=== PATIENT | female | born 1935 | race Caucasian/White ===

== ENCOUNTER 2018-03-09 11:54 | Emergency (ER) | payer MEDICARE, OTHER ==
[~2018-03-09] VITALS: Ht 165.1 cm; Wt 111.1 kg
[~2018-03-09 11:54] MED LIST: ALL DAY ALLERGY10 M2 PO; CALCIUM600 MG PO; FISH OIL 1,0001 EAC5 PO; FOLIC ACID0.8 MG PO; LEVOTHYROXINE125 MCG PO; LIPITOR10 MG PO; METOPROLOL SUCC25 MG PO; MULTI COMPLETE1 EACH PO; MYRBETRIQ25 MG PO; NASALCROM26 ML NAS; OMEPRAZOLE20 MG PO; POTASSIUM CHLO10 ME1 PO; VITAMIN D32000 UNIT PO; WARFARIN SODIUM3 MG PO
[2018-03-09] MEDS ORDERED: ONDANSETRON ODT8 MG PO (14:22)
--- NOTE | 2018-03-09 15:31 | EKG ---
[facility] [address] [facility] [place], [place] [address] Signed Ventricular-paced rhythm Abnormal ECG No previous ECGs available Confirmed by JACKY DRIVER MD ([id number]) on 03/09/2018 3:31:20 PM Electronically Signed By: JACKY DRIVER MD 03/09/18 1531 PATIENT NAME: DORON GARCIA Electrocardiogram DATE OF : 37 PHYSICIAN: JACKY DRIVER MD REPORT #: [id number] REPORT IS CONFIDENTIAL AND NOT TO BE RELEASED WITHOUT AUTHORIZATION
== END 2018-03-09 14:53 | disposition home or self-care (01) ==
LOC: ED 11:54
DX: R51 Headache (principal); R09.02 Hypoxemia; R11.10 Vomiting, unspecified; J44.9 Chronic obstructive pulmonary disease, unspecified; K21.9 Gastro-esophageal reflux disease without esophagitis; E03.9 Hypothyroidism, unspecified; Z88.0 Allergy status to penicillin; Z79.01 Long term (current) use of anticoagulants; Z79.899 Other long term (current) drug therapy
CPT/HCPCS: 70450; 71045; 80053; 84484; 85025; 85610; 93005; 93010; 96374; 99284; J2405

== ENCOUNTER 2019-03-11 07:32 | Inpatient (IN) | payer MEDICARE, OTHER, MEDICAID ==
[~2019-03-11] VITALS: Ht 165.1 cm; Wt 117.2 kg
[~2019-03-11 07:32] MED LIST changes: +ATORVASTATIN CA20 MG PO; +MAGNESIUM CITR296 ML PO; +MYRBETRIQ50 MG PO; +ONDANSETRON ODT8 MG PO; +VITAMIN E400 UNI4 PO
--- NOTE | 2019-03-11 11:50 | NUR ---
PT ARRIVED TO FLOOR VIA STRETCHER. ABLE TO SLIDE TRANSFER SELF WITH MINIMAL HELP. 2L NC IN PLACE, LR BOLUS INFUSING. PT WITH INCREASED RESPIRATIONS AND LABORED BREATHING. LUNGS SOUND TIGHT AND DIM. 2+ EDEMA BILAT LE. DENEIS N/T. PT INCONT OR WATERY/BLOODY STOOL. ATTEMDS CHANGED. ORIENTED TO ROOM. LR AT 125 ML/HR AND BOLUS STARTED AT 500ML/HR. CALL LIGHT I NREACH AND RT IN TO ADMINISTER BREATHING TREATMENT.
--- NOTE | 2019-03-11 14:52 | NUR ---
PATIENT UP TO BATHROOM AND BACK TO BED WITH RN. CALL LIGHT IN REACH. NO FURTHER NEEDS AT THIS TIME.
--- NOTE | 2019-03-11 21:46 | NUR ---
Pt cooperative with assessment, awakes easily, no c/o pain. O2 2L NC inplace, pt takes off, instructed to place it back on, Coopertive, CPAP from home at bedside, denies sob. 2+ pitting edema lower legs, up with 1pa, voided, back to bed, slight sob nothed on return, No c./o adverse reaction to abx. IVF infusing w/o problems.
--- NOTE | 2019-03-11 22:02 | NUR ---
NEGATIVE TURNER ROUNDING NOTE. PT RESTING IN BED WITH EYES CLOSED. DOES NOT WAKE WHILE WRTIER IN ROOM. WHITE BOARD UPDATED. CALL LIGHT IN REACH.
--- NOTE | 2019-03-11 22:20 | NUR ---
ANSWERED BATHROOM CALL LIGHT. PATIENT NEEDED HELP WIPED/CLEANED HER. PATIENT IS BACK TO BED USING WALKER. V/S TAKEN AND CHARTED. ICE CUBES REFILLED. PATIENT STATED WILL USE THE CALL LIGHT WHEN READY TO USE HER CPAP.
--- NOTE | 2019-03-12 | NUR ---
Resting, O2 4L NC inplace, no resp distress, awakes easily. IVF infusing, call light at bedside, legs elevated
--- NOTE | 2019-03-12 02:56 | NUR ---
ANSWERED CALL LIGHT. 1 PA TO THE BATHROOM. PATIENT IS BACK IN BED. CPAP BACK ON. ICE CHIPS REFILLED.
--- NOTE | 2019-03-12 05:38 | NUR ---
PT ON 4L NC, CURRENTLY WERING CPAP. IVF INFUSING W/O PROBLEMS. UP WITH 1PA/FWW, SLOW GAIT, EDEMATOUS 2+ PITTING EDEMA LEGS. VOIDING QS. HAD SMEAR OF REDDISH COLORED BM. NO C/O PAIN OR RESP DISTRESS. RESTING IN BED. NPO. NATIVE. CALL LIGHT AT BEDSIDE
--- NOTE | 2019-03-12 06:55 | NUR ---
up to br, voided, no bm, back to bed, tolerated well. O2 4L NC back on. 1PA/FWW assist, still NPO, did own mouth care, ice chips given on requests
--- NOTE | 2019-03-12 07:43 | NUR ---
REPORT RECEIVED FROM HAIRSPRING TRUER RN. PT IN BED AWAKE. 4L NC IN PLACE. DENIES NEEDS OR PAIN. CALL LIGHT IN REACH.
--- NOTE | 2019-03-12 09:10 | NUR ---
PT REPORTING 8/10 LOWER BACK PAIN R/T CHRONIC ARTHRITIS. PRN TYLENOL GIVEN.
--- NOTE | 2019-03-12 09:38 | NUR ---
HUMIDIFIER APPLIED TO OXYGEN POST, PT ON 4L N.C. AT THIS TIME.
--- NOTE | 2019-03-12 10:34 | NUR ---
PATIENT IN CHAIR WATCHING TV. ICE CHIPS GIVEN. CALL LIGHT IN REACH. NO FURTHER NEEDS AT THIS TIME.
--- NOTE | 2019-03-12 12:00 | NUR ---
PT ADVANCED TO CLEAR LIQUIDS, BROTH AND JELLO PROVIDED. DENIES ABDOMINAL PAIN/NAUSEA/VOMITTING. BOWEL TONES ARE HYPERACTIVE. CALL LIGHT IN REACH.
--- NOTE | 2019-03-12 15:04 | NUR ---
PT OOB TO AMBULATE IN HALLS. TOLERATED WELL. 1PA TO SHOWER. VANDANA KTO BED. 4L NC IN PLACE. CALL LIGHT IN REACH.
--- NOTE | 2019-03-12 15:05 | NUR ---
PATIENT AMBULATED TO SHOWER. PATIENT ASSISTED IN SHOWERING. NEW GOWN AND DEPENDS PROVIDED. DANIELLE CARE, SKIN CARE, SHAMPOO DONE. PATIENT NOW BACK TO BED. CALL LIGHT IN REACH. NO FURTHER NEEDS AT THIS TIME.
--- NOTE | 2019-03-12 16:45 | NUR ---
SBA WITH FWW TO AMBULATE HALLS. PT ABLE TO AMBULATE 1 SHORT LAP WITH NO RESTS OR BREAKS. 4L NC IN PLACE DURING WALK. PT WITH LABORED BREATHING. HEARTRATE INCREASED TO 104. SATURATIONS AT 91%. BACK TO BED WITH CALL LIGHT AND EPRSONAL ITEMS IN REACH.
--- NOTE | 2019-03-12 18:24 | NUR ---
PY ADVANCED TO FULL LIQUID DIET FOR DINNER. TOLERATING WELL. SBA TO BATHROOM WITH FWW. SOME INCONTINENCE OF STOOL IN ATTENDS, WAS LIGHT BROWN WITH SOME MUCOUS. NO VISIBLE BLOOD PRESENT. PT WITH "STUFFY NOSE" AND UNABLE TO BREATH AIR IN. O2 PLACE IN MOUTH, TITRATED TO 3L. SATURATIONS AT 90%. CALL LIGHT IN REACH.
--- NOTE | 2019-03-12 18:34 | NUR ---
PATIENT IN BED WATCHING TV. CALL LIGHT IN REACH. NO FURTHER NEEDS AT THIS TIME.
--- NOTE | 2019-03-12 18:57 | NUR ---
PT HAD GOOD DAY, 4L NC. AMBULATED IN HALLS WITH NURSE X1. TYLENOL GIVEN FOR LOWER BACK PAIN. NO BLOOD VISIBLE IN BOWEL MOVEMENTS. SHOWER TODAY.
--- NOTE | 2019-03-12 19:52 | NUR ---
FOCUSED FACTORY MANAGER ROUNDING NOTE. PT RECEIVING NEB TREATMENT. IV PUMP ALARMING, RESOLVED. PT DENIES QUESTIONS OR CONCERNS AT THIS TIME. CALL LIGHT IN REACH. WHITE BOARD UPDATED.
--- NOTE | 2019-03-12 20:40 | NUR ---
coop with assessment
--- NOTE | 2019-03-12 22:08 | NUR ---
RESTING, O2 4L IN MOUTH TX PTS CHOICE BARBIE TO 'DRY NOSE'. NO C/O PAIN.CALL LIGHT AT BEDSIDE, IVF INFUSING, LEGS ELEVATED
--- NOTE | 2019-03-12 23:44 | NUR ---
RESTING, O2 4L NC IN PLACE. IVF INFUSING, CALL LIHGT AT BEDSIDE
--- NOTE | 2019-03-13 01:51 | NUR ---
RESTING, PT WEARING CPAP W O2. NO DISTRESS. IVF INFUSING W/O PROBLEMS, NO C/O PAIN. TOLERATING CLEAR FLUIDS WELL, NO N/V. CALL LIGHT AND BEDSIDE AT HANDS REACH
--- NOTE | 2019-03-13 04:41 | NUR ---
RESTING, NO DISTRESS WEARING CPAP W O2. IVF INFUSING., CALL LIGHT AT BEDSIDE
--- NOTE | 2019-03-13 05:47 | NUR ---
PT HAS SLEPT THIS SHIFT, CURRENTLY RESTING, EYES CLOSED, WEARING CPAP WITH O2. AWAKES EASILY, NO C/O PAIN, NO RECTAL BLEEDING THIS SHIFT. UP TO BR WITH 1PA AND FWW, SOB AT BEGINING OF SHIFT BUT PT DENIES IT. LEG EDEMATOUS W/O CHANGES. COOPERATIVE WITH ALL PROCEDURES. IVF INFUSING, TOLERATED CLEAR LIQUIDS WILL START FULL LIQUIDS DIET THIS AM AND ADVANCE TOLERATED. NO EMESIS. CALL LIHGT AND FLUIDS AT BEDSIDE
--- NOTE | 2019-03-13 06:26 | NUR ---
up to br, voided and had mucoid like rectal discharge. back to bed. 1pa/fww, ivf infusing. O2 4L NC in place.
--- NOTE | 2019-03-13 08:00 | NUR ---
PT APPEARS TO BE SLEEPING IN BED. EYES CLOSED, RESP EVEN AND UNLABORED. NC IN MOUTH PT IS BREATHING THROUGH MOUTH, 4L NC.
--- NOTE | 2019-03-13 09:56 | NUR ---
PATIENT IS RESTING IN BED. BREAKFAST WAS EATEN. WARM WASHCLOTH OFFERED. PATIENT REFUSED SHOWER SAYS SHE GOT ONE YESTERDAY. CALL LIGHT IN REACH NO FURTHER NEEDS AT THIS TIME.
--- NOTE | 2019-03-13 10:22 | NUR ---
PT IN RESTROOM UPON ENTERING ROOM. 1PA WITH WALKER TO CHAIR FROM BATHROOM. NOTED PT HAD VERY SMALL INCONTINENT STOOL, VERY MUCOUSY WITH RED STREAKS, NOTIFIED DR. MACHADO. PT DENIES PAIN OR OTHER CONCERNS AT THIS TIME. NOTED DYSPNEA WITH EXERTION BUT PT STATES "THAT'S HOW IT ALWAYS IS." SATTING 94% ON 4L NC. WEANED TO 3LNC AT THIS TIME SATTING 93%. ALERT AND ORIENTED. SITTING UP IN RECLINER. CALL LIGHT WITHIN REACH.
[2019-03-13] MEDS ORDERED: CEPHALEXIN500 MG PO (11:32)
[2019-03-13] MEDS ORDERED: METRONIDAZOLE500 MG PO (11:33)
[2019-03-13] MEDS ORDERED: IPRATROPIUM BRO30 ML NAS (11:37)
[2019-03-13] MEDS ORDERED: IPRAT-ALBUT 0.5-3 ML INH (11:38)
[2019-03-13] MEDS ORDERED: FLONASE ALLERG9.9 ML NAS (11:38)
[2019-03-13] MEDS ORDERED: SEREVENT DISKU1 PUFF INH (11:39)
--- NOTE | 2019-03-13 12:15 | NUR ---
PT SITTING UP AT EDGE OF BED AFTER AMB TO RESTROOM. EATING LUNCH INDEPENDENTLY, JASEN WELL. WILL HAVE HOME O2 QUALIIFICATION AFTER LUNCH, LUIS A Sung AWARE. CALL LIGHT WITHIN REACH.
[2019-03-13] MEDS ORDERED: COMBIVENT RESPIM4 GM INH (13:30)
--- NOTE | 2019-03-13 13:38 | NUR ---
MED REC COMPLETE
--- NOTE | 2019-03-13 13:52 | NUR ---
FAXED THE RECORDS TO [facility] LY IN REGARDS TO INCREASING HER OXYGEN. COPY IN THE CHART.
== END 2019-03-13 14:05 | disposition home or self-care (01) | DRG 392 ==
LOC: ED 07:32 → MS 11:17
PROVIDERS: ADMIT Internal Medicine
DX: K57.32 Diverticulitis of large intestine without perforation or abscess without bleeding (principal); J96.11 Chronic respiratory failure with hypoxia; Z68.41 Body mass index [BMI] 40.0-44.9, adult; J41.1 Mucopurulent chronic bronchitis; I48.0 Paroxysmal atrial fibrillation; E03.9 Hypothyroidism, unspecified; E78.5 Hyperlipidemia, unspecified; G47.33 Obstructive sleep apnea (adult) (pediatric); K21.9 Gastro-esophageal reflux disease without esophagitis; E66.8 Other obesity; Z87.891 Personal history of nicotine dependence; Z95.0 Presence of cardiac pacemaker; Z99.81 Dependence on supplemental oxygen; Z88.0 Allergy status to penicillin; Z79.01 Long term (current) use of anticoagulants; Z79.51 Long term (current) use of inhaled steroids; Z79.899 Other long term (current) drug therapy
CPT/HCPCS: 36415; 74177; 80053; 81001; 83690; 83735; 85025; 85610; 85730; 87088; 94640; 94761; 96368; 99285-25; C9113; J0692; J0696; J3475; J7060; J7120

== ENCOUNTER 2021-01-08 08:47 | Inpatient (IN) | payer MEDICARE, OTHER, MEDICAID ==
[~2021-01-08] VITALS: Ht 165.1 cm; Wt 110.0 kg
[~2021-01-08 08:47] MED LIST changes: +CEPHALEXIN500 MG PO; +COMBIVENT RESPIM4 GM INH; +FLONASE ALLERG9.9 ML NAS; +FUROSEMIDE20 MG PO; +IPRAT-ALBUT 0.5-3 ML INH; +IPRATROPIUM BRO30 ML NAS; +LEVOTHYROXINE137 MCG PO; +METRONIDAZOLE500 MG PO; +RANITIDINE HCL150 M1 PO; +SEREVENT DISKU1 PUFF INH
--- NOTE | 2021-01-08 13:00 | NUR ---
85 YEAR OLD FEMALE PATIENT ADMITTED TO CCU VIA STRETCHER UNDER DR. DRIVER WITH DX OF COVID POSITIVE,HYPOXIA. UPON ADMIT PATIENT IS AWAKE, ALERT AND ORIENTED X3. HAD RAINER AND RAINER VACCINE IN THE PAST, PATIENT IS NOT SURE WHEN SHE HAD IT. PATIENT WITH HX OF COPD, PACEMAKER. ADMISSION PROCESS STARTED.
--- NOTE | 2021-01-08 14:00 | NUR ---
TO COMMODE TO VOID SMALL AMOUNT OF URINE, URINE IS CONCENTRATED, IS WEAK AND MOVES VERY SLOW. REMDESIVIR HUNG PER ORDERS.
--- NOTE | 2021-01-08 14:42 | NUR ---
SITTING UP IN BED EATING. IS VERY WEAK.
--- NOTE | 2021-01-08 17:00 | NUR ---
REFUSING DINNER. COUMADIN 2 MG PO GIVEN. ASSESSMENT DONE. DENIES FEELING SHORT OF BREATH. UP TO COMMODE TO VOID. MOVES VERY SLOW AND IS SOMEWHAT UNSTEADY ON FEET.
--- NOTE | 2021-01-08 17:01 | EKG ---
[facility] [address] [facility] [place] [address] Signed Ventricular-paced rhythm Abnormal ECG When compared with ECG of 09-MAR-2018 12:17, Vent. rate has decreased BY 4 BPM Confirmed by JACKY DRIVER MD ([id number]) on 01/08/2021 5:01:08 PM Electronically Signed By: JACKY DRIVER MD 01/08/21 1701 PATIENT NAME: DORON GARCIA Electrocardiogram DATE OF : 37 PHYSICIAN: JACKY DRIVER MD REPORT #: [id number] REPORT IS CONFIDENTIAL AND NOT TO BE RELEASED WITHOUT AUTHORIZATION
--- NOTE | 2021-01-08 18:00 | NUR ---
SLEEPING. O2 SAT VARIES FROM 88-92 ON 4 L NC.
--- NOTE | 2021-01-08 19:18 | NUR ---
PATIENT IS SLEEPING, REPORT TO NEXT SHIFT.
--- NOTE | 2021-01-08 19:30 | NUR ---
RECEIVED REPORT FROM RENU. RT IN ROOM SETTING UP CPAP AT THIS TIME.
--- NOTE | 2021-01-08 20:30 | NUR ---
IN TO DO ASSESSMENT. pt RESTING IN BED. REPORTED BACK PAIN. ASSISTED TO SIT UP ON SIDE OF BED. pt TACHYPNEIC, SHALLOW RESPIRATIONS. CRACKLES AUSCULATED IN BASES. pt REPORTED OCCASSIONAL COUGH. ASSISTED pt TO CHAIR. pt REPORTED IT WAS "MORE COMFORTABLE" CALL LIGHT WITHIN REACH.
--- NOTE | 2021-01-08 21:00 | NUR ---
PROVIDED FRESH COFFEE. CALL LIGHT WITHIN REACH.
--- NOTE | 2021-01-08 22:00 | NUR ---
ROUNDED ON pt. SITTING IN CHAIR WITH EYES CLOSED, RESPIRATIONS REGULAR IN THE LOW 30'S. CALL LIGHT WITHIN REACH.
--- NOTE | 2021-01-09 00:05 | NUR ---
CALL LIGHT ON. pt READY TO GO TO BED. UP TO VOID BSC, THEN TO BED. REQUIRED SOMETHING TO HOLD ON TO, BUT ABLE TO GET UP ON OWN. NO CHANGES IN ASSESSMENT. PROVIDED FRESH COFFEE. CALL LIGHT WITHIN REACH. pt SITTING IN BED WITH COFFEE.
--- NOTE | 2021-01-09 00:20 | NUR ---
CALL LIGHT ON. ASSISTED pt WITH CPAP. NO FURTHER REQUESTS AT THIS TIME. CALL LIGHT WITHIN REACH.
--- NOTE | 2021-01-09 01:13 | NUR ---
CALL LIGHT ON. pt UP TO BSC TO HAVE A BM. BACK TO BED. COMPLAINED OF HEARTBURN. NIO ORDERED AND GIVEN (SEE MAR). CPAP IN PLACE. NO FURTHER REQUESTS AT THIS TIME. CALL LIGHT WITHIN REACH.
--- NOTE | 2021-01-09 03:07 | NUR ---
ROUNDED ON pt. RESTING IN BED WITH CPAP ON. CALL LIGHT WITHIN REACH.
--- NOTE | 2021-01-09 06:16 | NUR ---
ROUNDED ON pt. SITTING IN BED TRIPODING ON BEDSIDE TABLE. LABS DRAWN. CALL LIGHT WITHIN REACH.
--- NOTE | 2021-01-09 07:11 | NUR ---
CALL LIGHT ON. pt HAD INCONT. STOOL. BSC. URINE. pt 1PA TO CHAIR. LEGS ELEVATED. NO FURTHER REQUESTS AT THIS TIME. CALL LIGHT WITHIN REACH.
--- NOTE | 2021-01-09 08:30 | NUR ---
PT IS SITTING UP IN CHAIR. WAS ABLE TO EAT ALL OF HER BREAKFAST. DENIES NAUSEA BUT HAS SOME PAIN. PRN PAINMED GIVEN. NO DESIRE TO VOID AT THIS TIME. PT PERFORMED ORAL CARE INDEPENDENTLY AFTER SUPPLIES WERE GIVEN. WASH CLOTH WAS GIVEN AND SHE WAS ABLE TO WIPE HER FACE INDEPENDENTLY. CALL LIGHT WITHIN REACH
--- NOTE | 2021-01-09 09:30 | NUR ---
PT WAS ABLE TO AMBULATE TO BEDSIDE COMMODE USING WALKER AND SBA. PT IS NOW LAYING DOWN IN BED. NC REPLACED WITH OXYMASK 3L, 02 94%. PT COMPLAINED OF HEART BURN, PRN MED GIVEN. CALL LIGHT WITHIN REACH.
--- NOTE | 2021-01-09 09:50 | NUR ---
PT'S SON (MR.LUCKY GARCIA) CALLED AND WAS GIVEN A FULL UPDATE ON HIS MOTHERS STATUS THIS MORNING. ALL QUESTIONS WERE ANSWERED. 'S PHONE NUMBER IS [phone].
--- NOTE | 2021-01-09 10:00 | NUR ---
Information obtained from RN as pt is covid + and does not have a kennedi phone. Pt is sleeping. Pt lives in [place] in a house with her son, David. Pt uses a walker and a CPAP. Will discharge to home with son when cleared medically.
--- NOTE | 2021-01-09 12:08 | NUR ---
PT ABLE TO USE BEDSIDE COMMODE WITH SBA. REDDENED AREA UNDER BILATERAL BREASTS, UNDER PANIS, AND IN GROIN FOLDS. CLEANED AREA AND DESENEX ANTIFUNGAL POWDER APPLIED. LUNCH ORDERED. CALL LIGHT WITHIN REACH.
--- NOTE | 2021-01-09 13:31 | NUR ---
PT IS UNDER PRECUTIONS AND I AM UNABLE TO VISIT. WILL FOLLOW NEEDED
--- NOTE | 2021-01-09 15:08 | NUR ---
PT IS SITTING UP AT THE BEDSIDE, EATING LUNCH. PT DENIES ANY PAIN OR NAUSEA. PT IS ABLE TO EAT INDEPENDENTLY BUT DOES HAVE INCREASED FATIGUE AND SOB. CALL LIGHT WITH IN REACH. PT WAS ASKED TO USE HER CALL LIGHT WHEN MEAL IS COMPLETED TO ASSIST WITH LAYING BACK DOWN.
[2021-01-09] MEDS ORDERED: HAIR, SKIN & N1 EACH PO (16:45)
[2021-01-09] MEDS ORDERED: CALCIUM500 MG PO (16:45)
--- NOTE | 2021-01-09 16:46 | NUR ---
MED REC COMPLETE
--- NOTE | 2021-01-09 17:00 | NUR ---
HELPED PT SIT UP AT BEDSIDE TO EAT HER DINNER. TOLERATED THAT WELL. NEW WATER CUP PLACED AT TABLE. SHEET USED TO COVER HER BACK WHILE SHE ATE. PREPARED THE CHAIR FOR HER TO SIT IN AFTER SHE FINISHES DINNER. CALL LIGHT WITHIN REACH. VERBALLY DISCUSSED TO USE HER CALL LIGHT WHEN PT IS READY TO MOVE TO THE CHAIR
--- NOTE | 2021-01-09 18:14 | NUR ---
ASSIST PT TO THE CHAIR. REPOSITIONED CHAIR SO THAT IT WAS CLOSE TO THE OUTLET. GAVE PT HER PHONE. STAND BY ASSIST WITH WALKER TO HER CHAIR. FIXED CORDS SINCE PT WAS ALL TANGLED UP IN THE CORDS. REMINDED PT TO TAKE DEEP BREATHS IN THROUGH HER NOSE AND OUT HER MOUTH SINCE OXYGEN WAS 88%. AFTER DEEP BREATHS PT OS WHEN UP TO LOW 90'S. NO OTHER CONCERNS AT THIS TIME. CALL LIGHT WITHIN REACH. LEGS ELEVATED. HEATED BLANKET PLACED ON PATIENTS ARMS AND HANDS. WILL CONTINUE TO MONITOR CLOSELY FOR CHANGES.
--- NOTE | 2021-01-09 19:30 | NUR ---
SHIFT REPORT RECEIVED. PATIENT AWAKE. PLACED ON CPAP BY CONDENSER CLEANER. CALL LIGHT IN REACH. VS STABLE.
--- NOTE | 2021-01-09 19:34 | NUR ---
PT REQUESTED EYEROPS, PLACED NS DROPS IN CORNER OF EYES. PT STATES THEY FELT BETTER. ONE PERSON ASSIST TO THE BEDSIDE COMMODE. SHE WAS ABLE TO LAY DOWN WITH OONE PERSON ASSIST. CPAP PLACED. WATER AND PHONE PLACED AT BEDSIDE TABLE. CALL LIGHT WITHIN REACH.
--- NOTE | 2021-01-09 21:00 | NUR ---
STAFF INTO ROOM FOR SCHEDULED MEDS. PATIENT IS FRUSTERATED THAT STAFF HAS NOT BEEN IN MORE REGULARLY. ASK PATIENT IF SHE HAD BEEN NEEDING HELP OR REMEMBERED HOW TO USE THE CALL LIGHT. PATIENT STATES "OF COURSE I DO". PATIENT OFF CPAP FOR NEB TREATMENT. LUNG SOUNDS ARE CLEAR. PATIENT BECOMES VISIBLY SOB WHEN OFF CPAP FOR SEVERAL MINS, THOUGH O2 SATS ARE IN MID 90'S WITH 6L OXYMASK. THEN 88-89% ON ROOM AIR WHILE PATIENT TAKES MEDS AND DRINKS SOME WATER. ASSISTED PATIENT TO REPOSITION. SHE REPORTS TINGLING IN HER LEGS AND ACHE IN HER BACK. PATIENT TURNED TO RIGHT SIDE PER REQUEST AND REPORTS BEING COMFORTABLE. POWDER APPLIED UNDER BREAST ON IN GROIN. SKIN IS INTACT. PATIENT DENIES TOILETING NEEDS. AGREES TO USE CALL LIGHT FOR ANY NEEDS. LIGHTS DIMMED. CPAP BACK IN PLACE.
--- NOTE | 2021-01-10 00:15 | NUR ---
PATIENT CALLED FOR ASSISTANCE. A&D OINTMENT REQUESTED FOR DRY SKIN. PATIENT TAKING A BREAK FROM THE CPAP AND ON 4L OXYMASK. PATIENT REPORTS PAIN 7/10 IN HER BACK. PRN TYLENOL PROVIDED. PATIENT UP TO VOID. TRANSFERS WELL. ASSISTED BACK TO BE AND POSITIONED FOR COMFORT ON RIGHT SIDE. CALL LIGHT IN REACH. PATIENT DENIED FURTHER NEEDS.
--- NOTE | 2021-01-10 01:50 | NUR ---
PATIENT APPEARS TO BE SLEEPING WELL. RR 16. O2 SAT IN MID 90'S ON 4L OXYMASK.
--- NOTE | 2021-01-10 06:00 | NUR ---
PATIENT RESTING IN BED. OXYMASK IN PLACE. O2 SATS GREATER THAN 90% ON 4L. PATIENT REPORTS FEELING BETTER THIS MORNING THAN SHE HAS PREVIOUSLY. PATIENT REPORTS BACK PAIN 6/10 IN LOWER BACK. ASSISTED PATIENT UP TO BSC. PATIENT VOIDED AND HAD SMALL BM. PATIENT INTO RECLINER. FRESH ICE WATER PROVIDED. TOLERATING 4L OXYMASK EVEN WITH ACTIVITY. BREAKFAST ORDER RECEIVED.
--- NOTE | 2021-01-10 09:13 | NUR ---
THIS RN IN TO ASSESS PT. PT ALERT AND ORIENTED X4, SITTING IN BEDSIDE RECLINER READING A BOOK. OXYMASK IN PLACE AT 4L. PT REPORTS NO PAIN WHEN ASKED. MEDICATIONS ADMINISTERED (SEE MAR). PT ASSESSED AT THIS TIME, CRACKLES PRESENT IN BASES OF LUNGS BILATERALLY, PT DENIES SOB. PT PLACED ON 4L O2 NC TO EAT BREAKFAST PT BEGAN TO DESAT WITHOUT OXYGEN DOWN TO 88-89%. PT NOW EATING BREAKFAST, SPO2 AT 91%, IV REMDESIVIR INFUSING ORDERED. PT REPORTS NO FURTHER NEEDS AT THIS TIME, WILL CONTINUE PLAN OF CARE. CALL LIGHT IN REACH.
--- NOTE | 2021-01-10 11:10 | NUR ---
THIS RN IN TO ASSESS PT AND DRAW LABS. PT ALERT AND ORIENTED SITTING AT BEDSIDE RECLINER ON 4L NC. PT ASSESSED, VITALS TAKEN. IV STARTED ON PT IN THE RIGHT FOREARM AND LABS DRAWN. IV SALINE LOCKED. PT THEN GIVEN A BED BATH AND A NEW GOWN AT THIS TIME. SCHEDULED MEDICATIONS ADMINISTERED AFTERWARDS AND ICE WATER GIVEN TO PT. PT ALSO UP TO VOID IN THE BSC USING A FWW. PT ASSISTED IN GETTING UP BUT WAS ABLE TO SHUFFLE WALK TO COMMODE AND SIT DOWN ON HER OWN. PT NOW BACK IN BEDSIDE RECLINER AND REPORTS NO FURTHER NEEDS. CALL LIGHT IN REACH, 4L O2 NC ON, WILL CONTINUE PLAN OF CARE.
--- NOTE | 2021-01-10 11:37 | NUR ---
DR. MACHADO UPDATED THIS RN ON NEW P.T ORDERS AND PT'S MEDICAL SURGICAL STATUS. WILL CONTINUE PLAN OF CARE.
--- NOTE | 2021-01-10 12:18 | NUR ---
PT ON PRECAUTIONS, RT IN WITH PT ALSO AT THE MOMENT. WILL FOLLOW
--- NOTE | 2021-01-10 12:30 | NUR ---
RESPONDED TO PT CALL LIGHT. PT SITTING IN BEDSIDE RECLINER AND WANTED TO MOVE OVER TO THE BED. PT ABLE TO USE FWW TO GET UP AND VOID INTO THE BSC AND WAS THEN ABLE TO SHUFFLE WALK OVER TO THE BED. PT NOW LAYING ON HER SIDE IN BED AND READING A MENU TO ORDER HER DINNER. PT REPORTS NO FURTHER NEEDS AT THIS TIME, WILL CONTINUE PLAN OF CARE. CALL LIGHT IN REACH, BED IN LOWEST POSITION.
--- NOTE | 2021-01-10 13:20 | NUR ---
THIS RN IN TO GIVE PT. HER FOOD. PT LAYING ON SIDE AWAKE AND ALERT. PT SAT UP ON SIDE OF THE BED TO EAT HER LUNCH. PT REPORTS NO FURTHER NEEDS AT THIS TIME, WILL CONTINUE PLAN OF CARE. CALL LIGHT IN REACH, BED IN LOWEST POSITION, PT ON 4L O2 NC.
--- NOTE | 2021-01-10 14:30 | NUR ---
RESPONDED TO PT CALL LIGHT. PT STATED SHE NEEDED TO VOID. THIS RN INTO ROOM TO ASSIST PT IN STANDING UP. PT ABLE TO USE THE FWW TO SHUFFLE WALK OVER TO THE BSC. PT ABLE TO VOID AND HAD A SMALL SMEAR/BM. PT NOW BACK IN BED LAYING ON SIDE. PT STATES SHE FELT SOB WHEN GETTING UP BUT FEELS BETTER AFTER RESTING. PT ORDERED BREAKFAST FOR THE NEXT MORNING AT THIS TIME. PT REPORTS NO FURTHER NEEDS WHEN ASKED AND STATES SHELL TRY TO GET SOME REST. CALL LIGHT IN REACH, BED IN LOWEST POSITION, WILL CONTINUE PLAN OF CARE.
--- NOTE | 2021-01-10 16:40 | NUR ---
THIS RN IN TO ADMINISTER ORDERED MEDICATIONS AND ASSESS PT. PT LAYING IN BEDSIDE RECLINER AWAKE AND ALERT ON 4L O2 NC. PT MEDICATION ADMINISTERED WARFARAIN HELD AT THIS TIME ORDERED ON THE NOV. PT THEN ASSESSED. PT STATED SHE NEEDED TO VOID AFTER ASSESSMENT AND WAS ABLE TO GET UP FROM RECLINER WITHOUT ASSISTANCE AND WALKED OVER TO THE BATHROOM USING THE FWW TO VOID. PT THEN ABLE TO WALK BACK TO BED WITH FWW. PT ASSISTED WITH PUTTING LEGS UP WHEN LAYING IN BED. PT IV'S FLUSHED AT THIS TIME AND ARE BOTH PATENT. PT REPORTS NO FURTHER NEEDS AT THIS TIME, PILLOWS PLACED UNDER BACK AND BETWEEN KNEES. PT LAYING ON HER R SIDE NOW. PT DENIES ANY NEEDS OR PAIN AT THIS TIME. CALL LIGHT IN REACH, BED IN LOWEST POSITION, WILL CONTINUE PLAN OF CARE.
--- NOTE | 2021-01-10 17:57 | NUR ---
PT RESTING IN BED ON RIGHT SIDE. RESPIRATIONS NOTED, SPO2 AT 94%. PT. IN NO APPARENT DISTRESS AND WAS LEFT UNDISTURBED AT THIS TIME. WILL CONTINUE PLAN OF CARE. CALL LIGHT IN REACH, BED IN LOWEST POSITION.
--- NOTE | 2021-01-10 18:53 | NUR ---
THIS RN IN TO CHECK ON PT. PT SITTING UP AT SIDE OF THE BED. PT STATED HER IV WAS BOTHERING HER. IV ON R FOREARM FLUSHED. IV RETURNED BLOOD AND FLUSHED EASILY. SITE IS WNL, PT STATED THE IRRITATION HAD SUBSIDED AFTER FLUSHING THE SITE. PT THEN WANTED TO GET OVER TO THE BEDSIDE RECLINER. PT ABLE TO GET UP ON HER OWN AND USE THE FWW TO GET OVER TO THE RECLINER. PRN TYLENOL THEN ADMINISTERED AT THIS TIME PT STATED HER BACK BEGAN TO ACHE 7/10. PT STATED THE PAIN WAS CHRONIC AND DUE TO HER ARTHRITIS WHEN ASKED. PT THEN STATED SHE NEEDED TO VOID. PT UP TO THE BATHROOM USING THE FWW TO VOID. PT NOW SITTING IN BEDSIDE RECLINER ON 4L O2 NC, SPO2 AT 92%. PT REPORTS NO FURTHER NEEDS AT THIS TIME. WILL CONTINUE PLAN OF CARE. CALL LIGHT IN REACH.
--- NOTE | 2021-01-10 20:00 | NUR ---
PATIENT PROVIDED WITH NEB TREATMENT AND SCHEDULED MEDS. PATIENT REPORTS DISCOMFORT IN HER THROAT, COUGH SYRUP PROVIDED. PATIENT REPORTS LUMBER BACK PAIN AND A "TWISTED RIB" IN HER MID LEFT BACK/SIDE. LIDODERM PATCH PLACED ON THIS RIB AREA. PATIENT UP TO VOID. USES WALKER APPROPRIATELY. TOLERATING 4L NC. PATEINT INTO BED. ASSISTED TO POSITION FOR COMFORT. PATIENT DOES NOT WANT CPAP AT THIS TIME DUE TO UNCOMFORTABLE MASK. PATIENT WILL CALL IF SHE CHANGES HER MIND. CALL LIGHT IN REACH.
--- NOTE | 2021-01-10 21:00 | NUR ---
PATIENT CALLED FOR CPAP TO BE PLACE. RT IN ROOM.
--- NOTE | 2021-01-11 00:03 | NUR ---
patient up to the bathroom. tolerates ambulating with fww and 4l nc. Patient returned to bed. cpap in place. patient reporting being comfortable. some relief from the lidoderm patch. call light in reach.
--- NOTE | 2021-01-11 04:45 | NUR ---
PATIENT CALLED FOR ASSISTANCE TO THE BATHROOM. PATIENT WALKED WITH FWW TO THE BATHROOM. TOLERATING 4L NC. PATIENT VOIDED, RETURNED TO BED. SITTING AT EDGE OF BED. LABS DRAWN. VS STABLE. PATIENT DENIED ANY NEEDS.
--- NOTE | 2021-01-11 07:30 | NUR ---
REPORT RECIEVED. PATIENT IS SLEEPING, NO DISTRESS NOTED.
--- NOTE | 2021-01-11 07:50 | NUR ---
AMBULATED TO BR TO VOID 150 ML OF CLEAR YELLOW URINE. USING WALKER FOR AMBULATION.
--- NOTE | 2021-01-11 08:00 | NUR ---
WOKE FOR ASSESSMENT. TO BEDSIDE FOR BREAKFAST. ROUTINE MEDICATIONS GIVEN. DENIES PAIN OR SHORTNESS OF BREATH. TALKED WITH PATIENT ABOUT POC FOR DAY, PATIENT INDICATES UNDERSTANDING. REMAINS ON 4 L O2 VIA NC.
--- NOTE | 2021-01-11 09:00 | NUR ---
BACK TO BED AFTER BREAKFAST.
--- NOTE | 2021-01-11 11:14 | NUR ---
pt up and ambulated to the restroom with slight standby assist. pt stated the urge to void came on suddenly, and she did not have her walker close to her. pt states "i want to be able to walk to the bathroom like the doctor told me i should". discussed safety with plan with pt, that includes calling for help. pt is agreable.
--- NOTE | 2021-01-11 13:00 | NUR ---
HAS BEEN SITTING AT BEDSIDE. ATE SOUP FOR LUNCH. ENC PATIENT TO INDEPENTENT IN ROOM. ENC USE OF I.S. PATIENT HAS BEEN TALKING ABOUT DISCHARGE FOR TOMORROW. HAS OCC COUGH.
--- NOTE | 2021-01-11 18:29 | NUR ---
PT ABLE TO EAT 80% OF HER DINNER, THEN SHE AMBULATED TO THE BATHROOM AND BACK TO BED INDEPENDENTLY WITH HER WALKER. SHE REPORTS BACK PAIN AT 8/10, 650 MG PO TYLENOL GIVEN. PT GETS INTO BED ON HER OWN, PILLOWS FOR SUPPORT BEHIND HER BACK AND COVERED PT WITH A WARM BLANKET. PT HAS CALL LIGHT WITHIN REACH, O2 VIA NC IN PLACE.
--- NOTE | 2021-01-11 19:57 | NUR ---
patient sitting at edge of bed. reports her back is sore. denies any needs. tolerating 4l nc.
--- NOTE | 2021-01-11 20:15 | NUR ---
PATIENT PROVIDED WITH BREATHING TREATMENT AND PM MEDS. PATIENT IS SITTING AT EDGE OF BED. HAVING A SNACK. TOLERATIING 4L NC. VS STABLE.
--- NOTE | 2021-01-11 22:30 | NUR ---
PATIENT REQUEST CPAP BE PLACED. ASSISTED PATIENT TO POSITION MASK. PATIENT RESTING BED. DENIES FURTHER NEEDS. CALL LIGHT IN REACH.
--- NOTE | 2021-01-12 00:30 | NUR ---
PATIENT APPEARS TO BE SLEEPING SOUNDLY. RR 20. OR SAT 95% ON CPAP.
--- NOTE | 2021-01-12 02:30 | NUR ---
PATIENT CONTINUES TO REST OFF AND ON. TOLERATING CPAP. O2 SATS >90%.
--- NOTE | 2021-01-12 04:51 | NUR ---
PATIENT UP TO THE BATHROOM. SMALL BM. PATIENT BRUSHED HER TEETH AND ASSISTED WITH BRUSHING HER HAIR. PATIENT'S VS STABLE. TOLERATING 4L EVEN WITH ACTIVITY. LABS DRAW. PATIENT DENIED OTHER NEEDS.
--- NOTE | 2021-01-12 05:50 | NUR ---
PATIENT PROVIDED WITH WARM BLANKET. SITTING AT EDGE OF BED.
--- NOTE | 2021-01-12 08:20 | NUR ---
PT IS AWAKE AND ALERT X4 SITTING UP AT THE SIDE OF THE BED.
--- NOTE | 2021-01-12 09:13 | NUR ---
IV SITES ARE INTACT, NO REDNESS OR SWELLING NOTED, FLUIDS AND FLUSHES INFUSE EASILY.
[2021-01-12] MEDS ORDERED: BENZONATATE100 MG PO (09:50)
[2021-01-12] MEDS ORDERED: SUCRALFATE1 GM PO (09:59)
[2021-01-12] MEDS ORDERED: OMEPRAZOLE20 MG PO (10:00)
[2021-01-12] MEDS ORDERED: DEXAMETHASONE6 MG PO (10:01)
--- NOTE | 2021-01-12 11:30 | NUR ---
PT ALERT AND ORIENTED X4, ABLE TO GET INTO WHEELCHAIR INDEPENDENTLY. ALL PERSONAL BELONGINGS GATHERED. PT IS DRESSED IN HER OWN CLOTHES. BOTH SALINE LOCKED IV SITES REMOVED. DC INSTRUCTIONS GIVEN, ALL PT QUESTIONS ANSWERED. PT TAKEN OUT THE BACKSTAGE HALLWAY TO DC HOME. ASSISTED PT TO GET INTO PERSONAL CAR. ALL BELONGINGS SENT WITH PT. PT'S SON, MR. CONSUELO GARCIA, IS DRIVING THE VEHICLE.
--- NOTE | 2021-01-13 14:04 | NUR ---
CALLED PATIENTS SON CONSUELO TO CHECK ON PATIENT AND MAKE SURE THEY HAVE THE OXYGEN. HE SAYS PATIENT IS DOING MUCH BETTER TODAY. THEY HAVE HER MEDICINE, AND THE OXYGEN THROUGH [facility]. HE HAS NO QUESTIONS. THEY HAVE A FOLLOW APPT MADE WITH PCP. REMINDED HIM THEY CAN CALL OUR CM TEAM ANYTIME.
== END 2021-01-12 11:30 | disposition home or self-care (01) | DRG 177 ==
LOC: ED 08:47 → CCU 12:48
PROVIDERS: ADMIT Internal Medicine; ATTEND Internal Medicine
PROC: XW033E5 Introduction of Remdesivir Anti-infective into Peripheral Vein, Percutaneous Approach, New Technology Group 5 (ICD-10-PCS; principal; 2021-01-08)
DX: U07.1 COVID-19 (principal); J12.82 Pneumonia due to coronavirus disease 2019; J96.21 Acute and chronic respiratory failure with hypoxia; J12.81 Pneumonia due to SARS-associated coronavirus; J44.0 Chronic obstructive pulmonary disease with (acute) lower respiratory infection; K21.9 Gastro-esophageal reflux disease without esophagitis; E03.9 Hypothyroidism, unspecified; E78.5 Hyperlipidemia, unspecified; I48.0 Paroxysmal atrial fibrillation; Z79.01 Long term (current) use of anticoagulants; Z79.899 Other long term (current) drug therapy; Z88.0 Allergy status to penicillin; Z87.891 Personal history of nicotine dependence; Z99.81 Dependence on supplemental oxygen
CPT/HCPCS: 71045; 80053; 83605; 83735; 83880; 84484; 85025; 85379; 85610; 93005; 93010; 94640; 94660; 97110; 97116; 97162; 97530; 99285-25; A9270; C9803; J7050; J8540; U0003

== ENCOUNTER 2021-02-12 10:53 | Inpatient (IN) | payer MEDICARE, OTHER, MEDICAID ==
[~2021-02-12] VITALS: Ht 165.1 cm; Wt 113.4 kg
[~2021-02-12 10:53] MED LIST changes: +BENZONATATE100 MG PO; +CALCIUM500 MG PO; +DEXAMETHASONE6 MG PO; -FUROSEMIDE20 MG PO; +HAIR, SKIN & N1 EACH PO; +SUCRALFATE1 GM PO
--- NOTE | 2021-02-12 18:13 | NUR ---
CALL LIGHT IN REAch vs charted and i&o's
--- NOTE | 2021-02-12 19:30 | NUR ---
transferred pt and belonings to rm 114, no further needs at this time
--- NOTE | 2021-02-12 20:20 | NUR ---
IN TO ASSIST RN WITH VITALS, ICE WATER REFILLED, NO FURTHER NEEDS AT TIME
--- NOTE | 2021-02-12 21:00 | NUR ---
Pt on 2L O2 chronic at home, uses home CPAP at HS, lungs with crackles at bases, no sob stated or noted, coop with assessment. no c/o pain. helped with repositioning in bed. edema at ankles . Pleasant and coop, IVF infusing. on clear liquids, tolerating well, no emesis.
--- NOTE | 2021-02-12 22:40 | NUR ---
IN TO ASSIST PT TO THE TOILET, SBA/1PA FWW AND IV POLE, PT SITTING UP AT BEDSIDE, REQUESTING SOMETHING FOR BACK PAIN, RN INFORMED, IV PUMP ALARMING, ALSO INFORMED RN, ASSISTED PT WITH COVERS, PT DECLINED SCDS THIS TIME, NO FURTHER NEEDS
--- NOTE | 2021-02-12 22:53 | NUR ---
sITTING EDGE OF BED. EGG CRATE MATTRESS GIVEN PER C/O BACK PAIN. MEDICATED WITH 1 NORCO PER BACK PAIN. UP TO BR, VOIDED, BACK TO BED, TOLERATED WELL.. CPAP TO BE PLACED ON SOON PT IS READY TO LAY DOWN, CALL LIGHT AT HANDS REACH
--- NOTE | 2021-02-13 00:13 | NUR ---
RESATING, USING CPAP, NO C/O PAIN OR SOB.
--- NOTE | 2021-02-13 03:02 | NUR ---
USING CPAP, NO FURTHER C/O PAIN. CALL LIGHT AND FLUIDS AT BEDSIDE
--- NOTE | 2021-02-13 05:09 | NUR ---
IN TO ASSIST PT OUT TO THE TOILET, 1PA FWW, PT SITTING AT EDGE OF BED, JELLO, BROTH, ICE CREAM, AND ICE WATER PROVIDED AT THIS TIME, NO FURTHER NEEDS AT THIS TIME
--- NOTE | 2021-02-13 05:25 | NUR ---
Has slept well, 1PA/FWW to br, voiding QS, on clear liquids, tolerating well, no emesis. O2 2LNC chronic at daytime, Has used her home CPAP w 4Lbleeding O2. lungs w crackles at bases, moist non productive cough present. Has Pacemaker, denies CP or sob. IVF infusing w/o problems, no c/o adverse reaction to IV abx. Was medicated with Tylenol 650mg X1 and [place] X1 per back pain, foam mattress placed on bed, effective, no further c/o pain. pleasant and coop. MENTASTA.
--- NOTE | 2021-02-13 06:19 | CONS ---
[facility] [address], [place] [address] Signed DATE OF CONSULTATION: 02/12/2021 CHIEF COMPLAINT: Lower quadrant abdominal pain. HISTORY OF PRESENT ILLNESS: Kayli is an 85-year-old significantly disabled female mainly with COPD and CPAP requiring 4 L per nasal cannula at night. She had developed left lower quadrant abdominal pain in the last few days along with what she felt was constipation. She was trying enemas and suppositories without success. She finally came to the emergency room for evaluation. She was tender in the left lower quadrant with an INR of 5.0, consistent with her rectal bleeding after all the suppositories and enemas. White count is 10.4 with a hemoglobin of 15. She was just in our hospital recently a few weeks back for COVID. Therefore, the COVID test was not repeated. She received a CT scan of the abdomen and pelvis and she clearly has inflammatory changes of the distal descending colon and the proximal sigmoid colon with bowel wall thickening and some mild pericolonic inflammation. No obvious free air or abscess. I was asked to admit her as a general surgeon on-call. She has since received cefepime and Flagyl. PAST MEDICAL HISTORY: COPD and CPAP with 4 L per nasal cannula at night and oxygen during the day. Gastroesophageal reflux disease, moderate-sized hiatal hernia, surgical hypothyroidism, cholelithiasis and diverticulitis two years ago. PAST SURGICAL HISTORY: Hysterectomy, pacemaker placement, cataract surgery, blepharoplasty, total thyroidectomy for . SOCIAL HISTORY: She quit smoking at age 75. She only has an occasional drink. She is clearly a DNR/DNI, which I discussed with her and her son extensively. Dr. Marlene Machado is her primary care provider. She prefers [facility]. She is now a and had 4 children. Her one son of colon cancer. She still lives in her house and her son David lives with her. His phone number is [phone]. Her adopted great grandson Huang lives with her as well. She can drive, but she prefers not to. She is retired from various jobs including the [employer]. FAMILY HISTORY: Her son of colon cancer. REVIEW OF SYSTEMS: She had 10 systems reviewed and there is nothing new to add. She tells me there is no metal in her body. Electronically Signed By: CE HEMPHILL MD 02/13/21 0619 PATIENT NAME: KAYLI GARCIA CONSULTATION DATE OF : 37 REPORT #: [id number] PHYSICIAN: CE HEMPHILL MD PCP: MARLENE MACHADO MD REPORT IS CONFIDENTIAL AND NOT TO BE RELEASED WITHOUT AUTHORIZATION [facility] [address], [place] [address] Signed ALLERGIES: Penicillin gives her hives. MEDICATIONS: 1. Levothyroxine. 2. Lasix. 3. Calcium. 4. Oxygen and CPAP. 5. Benzonatate. 6. Sucralfate. 7. Prilosec. 8. Dexamethasone. 9. Potassium. 10. Folate. 11. Vitamin D. 12. Multivitamin. 13. Iron. 14. Vitamin E. 15. Atorvastatin. 16. . 17. Flonase. 18. Ipratropium. 19. Albuterol. 20. Serevent. 21. Combivent. PHYSICAL EXAMINATION: VITAL SIGNS: Her blood pressure is 129/69, heart rate 68, respiratory rate 23, temperature is 97.8, she is 98% on 2 L nasal cannula. She is 5 feet 5 inches at 110 kg. GENERAL: Khushboo is an 85-year-old female lying supine in her hospital bed. Her son is at the bedside. She has oxygen per nasal cannula. She has pursed lips while breathing. She has some trouble finishing sentences because of shortness of breath. She has mildly distant breath sounds. It is very clear she has been a long-time smoker. HEART: Regular rate and rhythm without murmurs. I can see and feel the pacemaker on the left chest wall. ABDOMEN: Obese, but she is tender in the left lower quadrant to deep palpation. No peritoneal signs or symptoms. LABORATORY DATA: Her white blood count is10.4, hemoglobin 15 neutrophils 79. BUN 10, creatinine 1.05. INR 5.0. LFTs are negative. Albumin 3.8. Her EKG is pending. She was COVID positive about a month ago here in the hospital and therefore the test was not repeated. Electronically Signed By: CE HEMPHILL MD 02/13/21 0619 PATIENT NAME: KAYLI GARCIA CONSULTATION DATE OF : 37 REPORT #: [id number] PHYSICIAN: CE HEMPHILL MD PCP: MARLENE MACHADO MD REPORT IS CONFIDENTIAL AND NOT TO BE RELEASED WITHOUT AUTHORIZATION [address] [address] Signed RADIOGRAPHIC STUDIES: The CT scan of the abdomen and pelvis is reviewed directly and the report as well. She clearly has sigmoid diverticulitis with thickening of the bowel wall and pericolonic inflammatory changes. ASSESSMENT/PLAN: Pat is an 85-year-old female who presents with her 2nd episode of sigmoid diverticulitis. Thankfully, it is not particularly troublesome at this point. She has been admitted, given IV fluids and antibiotics. She is clearly a DNR/DNI as per our discussion with her and her son. She understand she is an extremely poor surgical candidate. We are going to proceed with conservative measures. We will consult Dr. Machado, our hospitalist for his input as well. Her INR is elevated, yet I do not see any Coumadin on her list of medications. I will review that with Dr. Machado. She and her son have expressed understanding and agreed with the above plan. Ce Hemphill MD ALB/MODL /[id number] cc: MD Ce Verma MD Copies: MARLENE MACHADO MD, ANDREW L MD ~ Electronically Signed By: CE HEMPHILL MD 02/13/21 0619 PATIENT NAME: KAYLI GARCIA CONSULTATION DATE OF : 37 REPORT #: [id number] PHYSICIAN: CE HEMPHILL MD PCP: MARLENE MACHADO MD REPORT IS CONFIDENTIAL AND NOT TO BE RELEASED WITHOUT AUTHORIZATION
--- NOTE | 2021-02-13 06:28 | NUR ---
Dr Goncalves in room aexaming pt. abd more distended, pt stated she has passed rectal gas. IVF infusing. IS at bedside, SCDS off at her requets, O2 2LNC in place now. awake
--- NOTE | 2021-02-13 06:41 | NUR ---
mag rider 2G IV started as per new orders. med teaching done, stated understanding
--- NOTE | 2021-02-13 07:12 | NUR ---
Report from Isabel Chen RN. Patient resting in bed with eyes closed. Respirations even and unlabored. IV fluids infusing. Call light in reach, bed rails up X2. Allowed to rest.
--- NOTE | 2021-02-13 08:44 | NUR ---
Patient sitting on edge of bed, completing neb treatment. AM medications administered. Denies pain. Assessment completed. Standby assist with walker to bathroom, continent of urine. Returns to bed. Call light in reach, bed rails up X2. Remains on O2 per nasal canula at 2L/min. IV fluids and antibiotics infusing.
[2021-02-13] MEDS ORDERED: OMEPRAZOLE20 MG PO (10:45)
--- NOTE | 2021-02-13 11:19 | NUR ---
Pulled call light out of wall, yelling out. Upon entering room, respirations elevated, states IV site in hand is painful and intolerable. Edema noted at IV site, slight redness noted as well. IV fluids stopped. Assist to bathroom, continent of urine. Sits in recliner. IV started X1 attempt by this nurse. TOlerated well.
[2021-02-13] MEDS ORDERED: FUROSEMIDE20 MG PO (11:31)
[2021-02-13] MEDS ORDERED: WARFARIN SODIUM3 MG PO (11:32)
--- NOTE | 2021-02-13 11:34 | NUR ---
MED REC COMPLETE
--- NOTE | 2021-02-13 13:45 | NUR ---
Sitting up in recliner, visiting with family. Denies needs at this time. Call light in reach.
--- NOTE | 2021-02-13 14:00 | NUR ---
Spoke with Kayli. She lives with son and he is her cg. Pt uses a CPAP, walker, shower chair, and home 02. Pt denies needs and plans on dc to home when cleared medically.
--- NOTE | 2021-02-13 14:03 | EKG ---
[facility] [address] [place] [address] Signed Ventricular-paced rhythm Abnormal ECG When compared with ECG of 08-JAN-2021 09:46, Vent. rate has decreased BY 9 BPM Confirmed by MARLENE MACHADO MD ([id number]) on 02/13/2021 2:03:22 PM Electronically Signed By: MARLENE MACHADO MD 02/13/21 1403 PATIENT NAME: DORON GARCIA Electrocardiogram DATE OF : 37 PHYSICIAN: MARLENE MACHADO MD REPORT #: [id number] REPORT IS CONFIDENTIAL AND NOT TO BE RELEASED WITHOUT AUTHORIZATION
--- NOTE | 2021-02-13 14:34 | NUR ---
LYING IN BED. IV PUMPS ALARMING. IV SITE FLUSHES WITH SOME DIFFICULTY, NO REDNESS OR EDEMA NOTED AT SITE. IV RATE OF POTASSIUM DECREASED TO 75 ML FOR PATIENT COMFORT. ASSESSMENT COMPLETED. FAMILY MEMBERS AT BEDSIDE. DENIES NEEDS, CALL LIGHT IN REACH, BED RAILS UP X2.
--- NOTE | 2021-02-13 18:15 | NUR ---
Up in chair for a few hours today. IV's started X2 today. IV potassium infused throughout the day. IV cefepime and flagyl continue. IV fluids decreased to 50ml/ hour. Remains alert and oriented.
--- NOTE | 2021-02-13 19:47 | NUR ---
PT'S IV WAS BEEPING, IV POTASSIUM IS COMPLETE. REGULAR IV FLUID IS INFUSING AND IV ABX. PT DENIES FURTHER NEEDS, CALL LIGHT IS CLOSE.
--- NOTE | 2021-02-13 21:03 | NUR ---
in chair, hob elevated O2 2LNC, ivf infusing. no c/o pain
--- NOTE | 2021-02-14 00:30 | NUR ---
IN TO ASSIST PT FROM THE CHAIR TO THE BED, PT ALSO UP TO VOID, CPAP IN PLACE BY PT, PT RESTING IN BED WITH NO FURTHER NEEDS AT THIS TIME
--- NOTE | 2021-02-14 00:35 | NUR ---
up to br, voided, back to bed, no c/o pain, using CPAP, maxepine abx started, tolerating well, tolerating clear liquids, no emesis, no bm, call light at bedside
--- NOTE | 2021-02-14 01:42 | NUR ---
resting, no distress, eyes closed using CPAP, ivf infusing L arm elevated in pillows, no c/o adverser eaction to IV abx
--- NOTE | 2021-02-14 05:22 | NUR ---
PT HAS SLEPT, NO C/O PAIN THIS SHIFT. USES 2LNC CHRONIC WHEN AWAKE, CPAP W 4L BLEEDING O2, WHICH SHE USED ALL THIS SHIFT. LUNGS DIM AT BASES, NO BM, DENIES PASSING GAS. EDEMA TO LE. 1PA/FWW, IVF INFUSING, TOLERATING CLEAR LIQUIDS, NO EMESIS, WAS UP IN CHAIR, USES CALL LIGHT
--- NOTE | 2021-02-14 06:23 | NUR ---
PT UP TO BR, VOIDED, BACK TO BED, TOLERATED WELL, BACK ON O2, COOP WITH LAB DRAWS, DR HEMPHILL IN ROOM.
--- NOTE | 2021-02-14 09:45 | NUR ---
Pt states feeling better today. No change in plan for dc.
--- NOTE | 2021-02-14 10:15 | NUR ---
Patient resting in chair, eyes closed, respirations even and non labored. Patient is on 2L oxygen per nc. No notable distress at this time. IV patent. Personal supplies and call light within reach.
--- NOTE | 2021-02-14 11:19 | NUR ---
WHEN I WENT IN TO HER ROOM TO DO HER VITALS PATIENT WAS SITTING UP IN HER CHAIR. BEFORE I LEFT PATIENT WANTED A PILLOW UNDER EACH ARM. PATIENT IS NOW SLEEPING.
--- NOTE | 2021-02-14 12:14 | NUR ---
PATIENT WANTED SOME SALT AND PEPPER FOR HER FOOD SO I WENT AND ASKED HER NURSE IF IT WAS OK TO GIVE HER THE SALT AND SHE SAID IT WAS OK
--- NOTE | 2021-02-14 16:10 | NUR ---
Patient resting in chair, respirations even and non labored. Patient has no distress. IV patent. No needs at this time. Personal supplies and call light within reach.
--- NOTE | 2021-02-14 19:16 | NUR ---
PATIENT TOOK A SHOWER AROUND 1530 TODAY. I HELPED HER WITH HER SHOWER I DID HER LEGS AND HER BACK. ALSO HELPED HER PUT HER GOWN ON NEW SOCKS. ALSO LOTIONED HER FEET. PATIENT IS SITTING UP IN HER CHAIR WITH A WARM BLANKET.
--- NOTE | 2021-02-14 19:36 | NUR ---
PT RESTING IN BED. SHIFT REPORT RECEIVED FROM KARIE HA. NO NEEDS AT THIS TIME. CALL LIGHT IN REACH.
--- NOTE | 2021-02-14 21:15 | NUR ---
IN TO GET VITALS, ICE WATER, PT WILL BE READY FOR BED BY 10:00-10:30, WILL VOID THEN
--- NOTE | 2021-02-14 21:41 | NUR ---
ASSESSMENT COMPLETED. GCS 15, A&O X4. LUNGS CLEAR IN UPPER LOBES, DIMINISHED IN LOWER LOBES. ABD SOFT, NONTENDER, BOWEL TONES ACTIVE. CMS INTACT. TRACE EDEMA LLE. IV WNL, CDI, FLUSHED WELL. IV FLUIDS AND MEDS INFUSING PER ORDER. HEART TONES DISTANT. NO OTHER NEEDS AT THIS TIME. CALL LIGHT IN REACH.
--- NOTE | 2021-02-14 22:20 | NUR ---
SCHEDULED MED PROVIDED. NO OTHER NEEDS. CALL LIGHT IN REACH. NO OTHER NEEDS. CALL LIGHT IN REACH.
--- NOTE | 2021-02-14 22:25 | NUR ---
IN TO ASSIST PT TO THE TOILET THEN TO BED, SBA FWW, CPAP IN PLACE BY PT, PT GOING TO BED AT THSI TIME, NO FURTHER NEEDS
--- NOTE | 2021-02-15 00:28 | NUR ---
SCHEDULED MED PROVIDED. NO OTHER NEEDS. CALL LIGHT IN REACH.
--- NOTE | 2021-02-15 03:00 | NUR ---
PT RESTING IN BED, CPAP ON. CALL LIGHT IN REACH.
--- NOTE | 2021-02-15 05:00 | NUR ---
PT RESTING IN BED, CPAP ON. CALL LIGHT IN REACH.
--- NOTE | 2021-02-15 06:30 | NUR ---
ASSESSMENT COMPLETED. GCS 15, A&O X4. LUNGS CLEAR IN UPPER LOBES, DIMINISHED IN LOWER LOBES. NC @ 2L. HEART TONES REGULAR. ABD SOFT, OBESE, NONTENDER, BOWEL TONES ACTIVE, PT STATES SHE HAS HAD NO FLATUS THIS MORNING. CMS INTACT. LLE HAS TRACE EDEMA. IV WNL. SCHEDULED MEDS PROVIDED. COFFEE PROVIDED. NO OTHER NEEDS AT THIS TIME. CALL LIGHT IN REACH.
--- NOTE | 2021-02-15 07:05 | NUR ---
Report received from Devorah HA. Pt resting in bed at this time, has no needs. Will continue plan of care.
--- NOTE | 2021-02-15 08:50 | NUR ---
Scheduled medications administered, assessment complete. Pt sitting up in chair, A+O. IVF infusing WNL. Trace edema noted to BLE, CMS intact. Active bowel tones, pt reports passing gas. Tolerated full liquid breakfast. Reports no pain or needs at this time.
[2021-02-15] MEDS ORDERED: LEVOFLOXACIN500 MG PO (10:15)
[2021-02-15] MEDS ORDERED: FLAGYL500 MG PO (10:16)
--- NOTE | 2021-02-15 11:20 | NUR ---
DISCHARGE TEACHING COMPLETED, PT VERBALIZES UNDERSTANDING AND ALL QUESTIONS ANSWERED. RX AND RX INFORMATION GIVEN. PHARMACIST IN ROOM AT THIS TIME.
--- NOTE | 2021-02-17 06:51 | DS ---
[facility] [address] [place], [place] [address] Signed ADMISSION DATE: 02/14/2021 DISCHARGE DATE: 02/15/2021 FINAL DIAGNOSIS: Sigmoid diverticulosis. PROCEDURES: CT scan of abdomen and pelvis. HISTORY OF PRESENT ILLNESS: Kayli is an 85-year-old significantly disabled female, who had diverticulitis in 2018. She is associated that with an episode of diarrhea. On this occasion, she was having some left lower quadrant abdominal pain and constipation. She was trying laxatives and enemas without success. She finally came to the emergency room for evaluation. Her white count was borderline at 10.4. She was tender in the left lower quadrant. INR was up at 5 due to her Coumadin. She had a CT scan of the abdomen and pelvis performed and had diverticulitis in the descending and proximal sigmoid colon. This was uncomplicated. I was asked to admit her as a general surgeon on-call. HOSPITAL COURSE: Kayli was admitted as above and started on cefepime and Flagyl. We had her medical service help her with all her chronic medical issues including vitamin K for INR. She improved each day. She is now on a full liquid diet, doing quite well. She had a significant amount of gas overnight and feels much better. On exam this morning, there is no abdominal pain whatsoever and all the distention is gone. She does wear oxygen at home during the day and at night, she had CPAP with 4 L per nasal cannula. Her son and grandson will help her in that regard. Given her progress, we are going to be discharging her to home. DISCHARGE PLANS AND MEDICATIONS: Kayli has had three full days of antibiotics at this time. In addition, she is allergic to penicillin with hives. Therefore, we will give her Levaquin 500 mg p.o. daily for seven days. She will receive Flagyl 250 mg p.o. t.i.d. for seven days. She will continue all her chronic medications at home. She will have to be careful with Coumadin because of the antibiotics in particular the Flagyl. She can follow a regular diet. I have instructed her regard to more low residue with respect to seeds, nuts, raw vegetables and so forth. Otherwise, any cooked food would be fine. She has an appointment with her primary care provider in around 10 days. That will be fine. She told me that would be financially beneficial to her. However, she has any concerns whatsoever, she knows she can call my office and we are happy to work her in or she could Electronically Signed By: CE HEMPHILL MD 02/17/21 0651 PATIENT NAME: KAYLI GARCIA DISCHARGE SUMMARY DATE OF : 37 REPORT #: [id number] PHYSICIAN: CE HEMPHILL MD PCP: MARLENE MACHADO MD REPORT IS CONFIDENTIAL AND NOT TO BE RELEASED WITHOUT AUTHORIZATION [address] [address] Signed always return to the emergency room if necessary. She has expressed understanding and agrees to above plan. Ce Hemphill MD ALB/MODL /[id number] cc: MD Ce Verma MD Copies: MARLENE MACHADO MD, ANDREW L MD ~ Electronically Signed By: CE HEMPHILL MD 02/17/21 0651 PATIENT NAME: KAYLI GARCIA DISCHARGE SUMMARY DATE OF : 37 REPORT #: [id number] PHYSICIAN: CE HEMPHILL MD PCP: MARLENE MACHADO MD REPORT IS CONFIDENTIAL AND NOT TO BE RELEASED WITHOUT AUTHORIZATION
== END 2021-02-15 11:40 | disposition home or self-care (01) | DRG 392 ==
LOC: ED 10:53 → MS 10:54
PROVIDERS: ADMIT Colon & Rectal Surgery; ATTEND Colon & Rectal Surgery
DX: K57.32 Diverticulitis of large intestine without perforation or abscess without bleeding (principal); K92.2 Gastrointestinal hemorrhage, unspecified; J96.11 Chronic respiratory failure with hypoxia; R79.1 Abnormal coagulation profile; Z66 Do not resuscitate; E87.6 Hypokalemia; E83.42 Hypomagnesemia; Z86.16 Personal history of COVID-19; K44.9 Diaphragmatic hernia without obstruction or gangrene; J43.9 Emphysema, unspecified; I48.0 Paroxysmal atrial fibrillation; K59.09 Other constipation; G47.33 Obstructive sleep apnea (adult) (pediatric); K80.20 Calculus of gallbladder without cholecystitis without obstruction; K21.9 Gastro-esophageal reflux disease without esophagitis; E89.0 Postprocedural hypothyroidism; Z90.710 Acquired absence of both cervix and uterus; Z88.0 Allergy status to penicillin; Z79.01 Long term (current) use of anticoagulants; Z95.0 Presence of cardiac pacemaker; Z98.890 Other specified postprocedural states; Z87.891 Personal history of nicotine dependence; Z79.899 Other long term (current) drug therapy
CPT/HCPCS: 36415; 74177; 80048; 80053; 83735; 84100; 85025; 85610; 93005; 93010; 94640; 94760; 97162; 99285-25; J0692; J3475; J3480; J7030; J7121